=== PATIENT | male | born 1995 | race Two or more races ===

== ENCOUNTER 2024-01-31 09:57 | Inpatient (IN) | payer MEDICAID ==
[~2024-01-31] VITALS: Ht 182.9 cm; Wt 91.6 kg
[~2024-01-31 09:57] MED LIST: ZOFR4T PO
--- NOTE | 2024-01-31 10:11 | ECG ---
[facility] Test Date: 2024-01-31 Test Time: 10:05:21 Pat Name: JODY GRISSOM Department: er Room: 0250T Gender: M Controls Technician: clarissa : 1995 Requested By: KIMBERLYN MERRITT Order Number: [id number] Reading MD: Keith Platt Measurements Intervals [place] Rate: 84 P: -1 IN: 130 QRS: 37 QRSD: 93 T: 6 QT: 367 QTc: 434 Interpretive Statements Sinus rhythm Electronically Signed On 02-04-2024 10:03:48 PST by Keith Paltt Please click the below link to view image of tracing.
[2024-01-31 10:15] VITALS: PULSE 80; RESP 17; O2SAT 95
--- NOTE | 2024-01-31 10:24 | ED.PDOC ---
History of Present Illness HPI Comments This is a 28-year-old male who comes in with chief complaint of possible seizure today. The patient was currently staying with family and they noted that the patient may have had a tonic-clonic seizure today. They are not sure how long it lasted. The patient was now awake upon arrival and states that he has not had a seizure for a while. He takes valproic acid for his seizures at this time. The patient was still not completely back to his baseline. He denies any chest pain, back pain or oral trauma. Chief Complaint: Seizure Time Seen by MD: 10:04 Primary Care Provider: ROSA Reviewed Notes: Nurses Notes, Car Body Mechanic Notes, Medications, Allergies (NKDA) Allergies: Coded Allergies: NO KNOWN ALLERGIES (Unverified , 10/09/23) Home Meds Active Scripts Ondansetron Odt 4MG Tab (ZOFRAN PO) 4 Mg Tb, 4 MG PO TID PRN, #15 TAB ODT TAB-DISSOLVE IN MOUTH, THEN SWALLOW Prov:SHIVANI SUTTON MD 10/10/23 Information Source: Patient, Emergency Med Personnel Mode of Arrival: EMS Severity: Moderate Timing: Minutes Duration: Intermittent Prehospital treatment: None Associated signs and symptoms Associated seizure but no nausea, vomiting or diarrhea Past Medical History PAST MEDICAL HISTORY: DM, High Lipids, Seizures Past Medical History (Other): The patient was a paraplegic Surgical History (Other): Right arm PICC line, back surgery, cranial surgery Family History Family History: Unknown Social History Smoker: Non-Smoker Alcohol: Occasionally Drugs: Denies Drug Use Lives In: Home Constitutional: denies: chills, diaphoresis, fatigue, fever, malaise, sweats, weakness, others EENTM: denies: blurred vision, double vision, ear bleeding, ear discharge, ear drainage, ear pain, ear ringing, eye pain, eye redness, hearing loss, mouth pain, mouth swelling, nasal discharge, nose bleeding, nose congestion, nose pain, photophobia, tearing, throat pain, throat swelling, voice changes, others Respiratory: denies: cough, hemoptysis, orthopnea, SOB at rest, shortness of breath, SOB with excertion, stridor, wheezing, others Cardiovascular: denies: chest pain, dizzy spells, diaphoresis, Dyspnea on exertion, edema, irregular heart beat, left arm pain, lightheadedness, palpitations, PND, syncope, others Gastrointestinal: denies: abdomen distended, abdominal pain, blood streaked bowels, constipated, diarrhea, dysphagia, difficulty swallowing, hematemesis, melena, nausea, poor appetite, poor fluid intake, rectal bleeding, rectal pain, vomiting, others Genitourinary: denies: burning, dysuria, flank pain, frequency, hematuria, incontinence, penile discharge, penile sore, pain, testicle pain, testicle swelling, urgency, others Neurological: reports: seizure; denies: dizziness, fainting, headache, left sided numbness, left sided weakness, numbness, paresthesia, pre-existing deficit, right sided numbness, right sided weakness, speech problems, tingling, tremors, weakness, others Musculoskeletal: denies: back pain, gout, joint pain, joint swelling, muscle pain, muscle stiffness, neck pain, others Integumetry: denies: bruises, change in color, change in hair/nails, dryness, laceration, lesions, lumps, rash, wounds, others Allergic/Immunocompromised: denies: Difficulty Healing, Frequent Infections, Hives, Itching, others Hematologic/Lymphatic: denies: anemia, blood clots, easy bleeding, easy bruising, swollen glands, others Endocrine: denies: excessive hunger, excessive sweating, excessive thirst, excessive urination, flushing, intolerance to cold, intolerance to heat, unexplained weight gain, unexplained weight loss, others Psychiatric: denies: anxiety, bipolar disorder, depression, hopeless, panic disorder, schizophrenia, sleepless, suicidal, others Physical Exam General Appearance: Moderate Distress HEENT: Normal ENT Inspection, Pharynx Normal, TMs Normal Neck: Full Range of Motion, Non-Tender, Normal, Normal Inspection Respiratory: Chest Non-Tender, Lungs Clear, No Accessory Muscle Use, No Respiratory Distress, Normal Breath Sounds Cardiovascular: No Edema, No JVD, No Murmur, No Gallop, Normal Peripheral Pulses, Regular Rate/Rhythm Breast Exam: Deferred Gastrointestinal: No Organomegaly, Non Tender, No Pulsatile Mass, Normal Bowel Sounds, Soft Genitalia: Deferred Pelvic: Deferred Rectal: Deferred Extremities: No calf tenderness, Normal capillary refill, Normal inspection, Normal range of motion, Non-tender, No pedal edema Musculoskeletal : Apperance: Normal Neurologic: Motor Weakness, Normal Affect, Normal Mood, No Sensory Deficits, Other (Slightly lethargic, the patient is a paraplegic) Cerebellar Function: Unable to Test Reflexes: Normal Skin: Dry, Pallor, Warm Lymphatic: No Adenopathy Was a procedure done? Was a procedure done?: No EKG EKG : Pulse Rate (adult): 84 [place]: Normal Cardiac Rhythm: NSR Block: None ST: Nonsp Differential Dx Considerations may include: Generalized weakness, electrolyte imbalance, dehydration X-Ray, Labs, Meds, VS Vital Signs Date Time Temp Pulse Resp B/P (MAP) Pulse Ox O2 Delivery O2 Flow Rate FiO2 01/31/24 10:29 84 01/31/24 10:05 84 01/31/24 10:00 98.2 96 16 106/74 (85) 96 Lab Test 01/31/24 10:40 01/31/24 10:20 Range/Units Urine Color Colorless Yellow Urine Clarity Turbid H Clear Urine pH 5.0 5.0-9.0 Urine Specific [place] 1.033 1.001-1.035 Urine Protein Negative Negative Urine Ketones 2+ H Negative Urine Blood Trace H Negative /uL Urine Nitrite Negative Negative Urine Bilirubin Negative Negative Urine Urobilinogen Normal Negative mg/dL Urine Leukocyte Esterase 3+ Negative /uL Urine RBC 403 0 - 3 /hpf Urine WBC 152 0 - 3 /hpf Urine Squamous Epithelial Cells Few <5 /hpf Urine Bacteria Few H None Seen /hpf Urine Mucus Few None Seen Urine Yeast (Budding) Loaded None Seen /hpf Urine Glucose 4+ H Normal mg/dL White Blood Count 13.1 H 4.4-10.8 10^3/uL Red Blood Count 4.66 4.5-5.90 10^6/uL Hemoglobin 14.8 13.5-17.5 g/dL Hematocrit 44.2 41.0-53.0 % Mean Corpuscular Volume 94.8 80.0-100.0 fL Mean Corpuscular Hemoglobin 31.8 28.0-32.0 pg Mean Corpuscular Hemoglobin Concent 33.5 32.0-36.0 g/dL Red Cell Distribution Width 13.6 11.8-14.3 % Platelet Count 517 H 140-450 10^3/uL Mean Platelet Volume 7.8 6.9-10.8 fL Neutrophils (%) (Auto) 64.9 37.0-80.0 % Lymphocytes (%) (Auto) 27.5 10.0-50.0 % Monocytes (%) (Auto) 6.5 0.0-12.0 % Eosinophils (%) (Auto) 0.4 0.0-7.0 % Basophils (%) (Auto) 0.7 0.0-2.0 % Neutrophils # (Auto) 8.5 1.6-8.6 10 ^3/uL Lymphocytes # (Auto) 3.6 0.4-5.4 10 ^3/uL Monocytes # (Auto) 0.8 0-1.3 10 ^3/uL Eosinophils # (Auto) 0.1 0-0.8 10 ^3/uL Basophils # (Auto) 0.1 0-0.2 10 ^3/uL Nucleated Red Blood Cells 0.0 % Sodium Level 139 136-145 mmol/L Potassium Level 4.0 3.5-5.1 mmol/L Chloride Level 106 98-107 mmol/L Carbon Dioxide Level 23 20-31 mmol/L Anion Gap 10 5-15 Blood Urea Nitrogen 11 9-23 mg/dL Creatinine 0.62 L 0.700-1.30 mg/dL Glomerular Filtration Rate Calc 134 >90 mL/min BUN/Creatinine Ratio 17.7 10.0-20.0 Serum Glucose 230 H 74-106 mg/dL Calcium Level 10.1 8.7-10.4 mg/dL Valproic Acid Level Pending IV Hep-Lock was established The patient was placed on the conveyor monitor and seizure precautions were placed on the patient The urine test came back and is positive for a significant UTI The CBC shows an elevated white blood cell count of 13.1 There is a concern that this is acute pyelonephritis. The chemistry panel is within normal limits At this time the valproic acid level is pending The patient was being admitted The patient was given Rocephin 1 g IV piggyback We did discuss the findings with the patient and they are in agreement with the management. A neurology consult will also be obtained. We discussed the findings with the patient. Time of 1ST Reevaluation: 10:28 Reevaluation 1ST: Unchanged Patient Education/Counseling: Diagnosis, Treatment, Prognosis Family Education/Counseling: No Family Present Departure 1 Departure Time of Disposition: 11:58 Impression: Primary Impression: Observed seizure-like activity Additional Impression: Acute pyelonephritis Disposition: ADMITTED INPATIENT Admit to: Med Surg Condition: Fair Critical Care Note Critical Care Time?: Yes (35 min-critical care time only) Stability Stability form required: Yes Unstable for transfer: ED Physician Assesment (Clinical assesment) Heart Score Heart Score: Heart Score Response (Comments) Value History N/A 0 EKG N/A 0 Age N/A 0 Risk Factors N/A 0 Troponin N/A 0 Total 0 KIMBERLYN MERRITT MD Jan 31, 2024 10:24
[2024-01-31 10:44] LABS: Basophils # (auto) 0.1 10 ^3/uL (0-0.2); Eosinophils # (auto) 0.1 10 ^3/uL (0-0.8); Eosinophils % (auto) 0.4 % (0.0-7.0); Monocytes # (auto) 0.8 10 ^3/uL (0-1.3)
[2024-01-31 10:47] LABS: Basophils % (auto) 0.7 % (0.0-2.0); Hematocrit 44.2 % (41.0-53.0); Hemoglobin 14.8 g/dL (13.5-17.5); Lymphocytes # (auto) 3.6 10 ^3/uL (0.4-5.4); Lymphocytes % (auto) 27.5 % (10.0-50.0); Mean Corpuscular Hemoglobin 31.8 pg (28.0-32.0); Mean Corpuscular Hgb Conc. 33.5 g/dL (32.0-36.0); Mean Corpuscular Volume 94.8 fL (80.0-100.0); Monocytes % (auto) 6.5 % (0.0-12.0); Neutrophils # (auto) 8.5 10 ^3/uL (1.6-8.6); Neutrophils % (auto) 64.9 % (37.0-80.0); Platelet Count (auto) 517 10^3/uL (140-450); Red Blood Cells 4.66 10^6/uL (4.5-5.90); Red Cell Distribution Width 13.6 % (11.8-14.3); White Blood Cell 13.1 10^3/uL (4.4-10.8)
[2024-01-31 11:18] LABS: Urine Bacteria FEW /hpf (None Seen); Urine Blood TRACE /uL (Negative); Urine Budding Yeast LOADED /hpf (None Seen); Urine Clarity Turbid (Clear); Urine Color Colorless (Yellow); Urine Mucus FEW (None Seen); Urine Protein, UAD Negative (Negative); Urine Specific Gravity 1.033 (1.001-1.035); Urine Urobilinogen Normal (Negative); Urine WBC 152 /hpf (0 - 3)
[2024-01-31 11:31] LABS: Chloride 106 mmol/L (98-107); Sodium 139 mmol/L (136-145)
[2024-01-31 11:32] LABS: Anion Gap 10 (5-15); Calcium 10.1 mg/dL (8.7-10.4); Carbon Dioxide 23 mmol/L (20-31)
[2024-01-31 11:37] LABS: BUN/Creatinine Ratio 17.7 (10.0-20.0); Blood Urea Nitrogen 11 mg/dL (9-23)
[2024-01-31 11:46] LABS: Glucose 230 mg/dL (74-106)
[2024-01-31] MEDS: cefTRIAXone 1GM/50ML D5W 50 ML IV ONE (12:25)
[2024-01-31] MEDS ORDERED: VALP1CAP4 PO (14:41)
[2024-01-31] MEDS ORDERED: DOCUSATE SOD 100 MG CAP PO PRN ×2 (14:45→15:30)
[2024-01-31] MEDS ORDERED: DEXTROSE (50%) 50ML SYRG IV PRN ×3 (14:45→15:30)
[2024-01-31] MEDS ORDERED: HYDROcodone-ACET 5/325MG TAB PO PRN ×2 (14:45→15:30)
[2024-01-31] MEDS ORDERED: ACETAMINOPHEN 325 MG TAB PO PRN ×2 (14:45→15:30)
[2024-01-31] MEDS ORDERED: MORPHINE SULFATE INJ 2 MG/ml SYRG IV PRN ×2 (14:45→15:30)
[2024-01-31] MEDS ORDERED: ONDANSETRON HCL 4 MG/2 ML VIAL IV PRN ×2 (14:45→15:30)
[2024-01-31] MEDS ORDERED: ATOR40TA52 PO (14:46)
[2024-01-31] MEDS ORDERED: APIX2.5T PO (14:46)
[2024-01-31] MEDS ORDERED: LEVE100020 PO (14:46)
[2024-01-31] MEDS ORDERED: CHOL20003 PO (14:46)
[2024-01-31] MEDS ORDERED: ERTAPENEM SOD 1 GM INJ VIAL IM SCH (15:00)
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
[2024-01-31] MEDS: ACCU-CHEK COMFORT CURVE STRIP VI SCH ×2 (16:27→17:00)
[2024-01-31] MEDS: ERTAPENEM SOD INJ 1 GM in SODIUM CHL 0.9% 50 ML IV SCH (16:31)
[2024-01-31] MEDS: InsuLIN REG 1unit/0.01ml Soln (100units/ml) SC SCH (16:33)
[2024-01-31] MEDS ORDERED: InsuLIN REG 1unit/0.01ml Soln (100units/ml) SC SCH ×2 (17:00→17:15)
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
[2024-02-01] VITALS (10 sets, daily range): BP systolic 91–113; BP diastolic 53–62; PULSE 68–78; RESP 14–18; TEMP 97.9–98.7; O2SAT 95–100
[2024-02-01] MEDS ORDERED: SITA50TA25 PO (00:47)
[2024-02-01 08:22] LABS: Eosinophils # (auto) 0.1 10 ^3/uL (0-0.8); Eosinophils % (auto) 0.8 % (0.0-7.0); Hemoglobin 13.7 g/dL (13.5-17.5); Monocytes # (auto) 0.7 10 ^3/uL (0-1.3); Neutrophils % (auto) 49.6 % (37.0-80.0); Red Blood Cells 4.34 10^6/uL (4.5-5.90)
[2024-02-01 08:24] LABS: Basophils # (auto) 0 10 ^3/uL (0-0.2); Basophils % (auto) 0.4 % (0.0-2.0); Lymphocytes # (auto) 4.9 10 ^3/uL (0.4-5.4); Lymphocytes % (auto) 43.1 % (10.0-50.0); Mean Corpuscular Hemoglobin 31.6 pg (28.0-32.0); Mean Corpuscular Hgb Conc. 33.5 g/dL (32.0-36.0); Mean Corpuscular Volume 94.4 fL (80.0-100.0); Monocytes % (auto) 6.1 % (0.0-12.0); Neutrophils # (auto) 5.6 10 ^3/uL (1.6-8.6); Nucleated Red Blood Cells % 0.1 %; Platelet Count (auto) 469 10^3/uL (140-450); Red Cell Distribution Width 13.9 % (11.8-14.3); White Blood Cell 11.3 10^3/uL (4.4-10.8)
--- NOTE | 2024-02-01 08:25 | DVHPN2 ---
Progress Note - Dictate Date Seen: Feb 01, 2024 Medical Necessity Reason Pt with a Central, PICC or Fol: Yes The following are medically ne: Romero Catheter Subjective Mr. Stanley is a right-handed gentleman with a history of traumatic brain injury, the patient was brought to the [facility] on 01/31/2024 with a chief company of seizure activity. I have seen and examined the patient, I have discussed with his nurse, the patient was doing fine, no seizure activity, no new complaints Valproic acid, 01/31/2024: 6.8, <3, 01/22/2020 4:24.5 Urinalysis, 01/31/2024: WBC: 152, urine leukocyte esterase: 3+ WBC/HB/PLT/MCV, 01/31/2024: 13.1/40.8/517/94.8 BMP, 01/31/2024: Unremarkable CMP, 02/01/2024: Unremarkable Vitamin B12, 02/01/2024: 921 Folic acid, 02/01/2024: 5.65 TSH, 02/01/2024: Up HGB A1c, 01/31/2024: 7.8 vital signs Vital Sign Date Time Temp Pulse Resp B/P (MAP) Pulse Ox O2 Delivery O2 Flow Rate FiO2 02/01/24 05:12 98.5 73 16 103/61 (75) 95 98.5 02/01/24 00:47 Room Air* 0 21 Total Intake and Output 01/31/24 01/31/24 02/01/24 15:00 23:00 07:00 Intake Total 50 ml 50 ml 0 ml Output Total 2000 ml 375 ml Balance 50 ml -1950 ml -375 ml medications Current Medications Medications Dose Ordered Sig/[place] Route Start Time Stop Time Status Last Admin Dose Admin Ertapenem 1 gm DAILY IM 01/31/24 15:00 02/04/24 15:00 Cancel Acetaminophen 650 mg Q6HP PRN PO 01/31/24 14:45 Ertapenem 1 gm/ Sodium Chloride 50 ml @ 100 mls/hr DAILY IV 01/31/24 16:00 02/04/24 17:00 01/31/24 16:31 100 MLS/HR Diagnostic Test (Pha) 1 strip IQ4HR 01/31/24 16:00 02/01/24 04:00 1 STRIP Insulin Human Regular IQ4HR SC 01/31/24 16:00 02/01/24 05:21 3 UNITS Dextrose 50 ml UD PRN IV 01/31/24 15:30 Acetaminophen/ Hydrocodone Bitart 1 tab Q4HP PRN PO 01/31/24 15:30 Ondansetron HCl 4 mg Q4HP PRN IV 01/31/24 15:30 Docusate Sodium 100 mg BIDPRN PRN PO 01/31/24 15:30 Morphine Sulfate 2 mg Q4HPRN PRN IV 01/31/24 15:30 Divalproex Sodium 750 mg QAM PO 02/01/24 07:00 02/01/24 06:15 750 MG Divalproex Sodium 1,000 mg HS PO 01/31/24 22:00 01/31/24 22:00 1,000 MG Lorazepam 1 mg Q5MINP PRN IV 01/31/24 21:30 objective MENTAL STATUS: Awake and alert. Oriented to person, place and time. SPEECH, LANGUAGE, HIGHER CORTICAL FUNCTION: Speech, language normal. CRANIAL NERVES: Pupils are equal, round and reactive. EOMs full and conjugate. No nystagmus. Facial sensation intact in all three divisions bilaterally. Mandibular strength intact. Facial muscles symmetrical and strength intact. SENSATION: pinprick is diminished: Below bilateral T12-L1 dermatomes MUSCLE TONE, BULK: Normal tone in the upper and lower extremity. Normal muscle bulk. No fasciculations. No abnormal movements or posturing. Muscle strength of the major groups in the upper extremities is 5/5, Lower extremities: 0/5. REFLEXES: Deep tendon reflexes normal and symmetrical. No pathological reflexes. CEREBELLAR/COORDINATION: Finger to nose is normal bilaterally. GAIT/STATION: Cannot stand or walk Big scars in the chest, abdomen., T-spine laboratory and microbiology Test 02/01/24 05:55 Range/Units Serum Glucose Pending Problem List Seizure breakthrough Seizure disorder secondary to traumatic brain injury Chronic brain trauma status post surgery Paraplegia Urinary tract infection Assessment/Plan Monitoring Supportive treatment Telemetry UDS Follow-up Depakote level this evening EEG Extra acid 1000 mg po now Depakote 750 mg a.m., 1000 mg HS Ativan for seizure breakthrough IV antibiotics Follow with his doctors on discharge This medical document was created using an electronic medical record system with [employer] dictation system. Although this document has been carefully reviewed, there may still be some phonetic and typographical errors. These areas are purely typographical due to imperfections of the software programs, and do not reflect any compromise in the patient's medical care Prognosis poor Plan discussed with: Patient, Other Total Time (mins): 35 FAWAD MERINO MD Feb 01, 2024 08:25
[2024-02-01 08:33] LABS: Alanine Aminotransferase 29 U/L (7-40); Albumin 3.7 g/dL (3.2-4.8); Alkaline Phosphatase 70 U/L (46-116); Anion Gap 11 (5-15); Aspartate Aminotransferase 16 U/L (13-40); BUN/Creatinine Ratio 20.4 (10.0-20.0); Blood Urea Nitrogen 10 mg/dL (9-23); Calcium 9.5 mg/dL (8.7-10.4); Carbon Dioxide 22 mmol/L (20-31); Chloride 107 mmol/L (98-107); Magnesium 1.7 mg/dL (1.6-2.6); Phosphorus 3.9 mg/dL (2.4-5.1); Potassium 3.7 mmol/L (3.5-5.1); Sodium 140 mmol/L (136-145)
[2024-02-01 08:34] LABS: Bilirubin, Total 0.4 mg/dL (0.2-1.0); Total Protein 6.7 g/dL (5.7-8.2)
[2024-02-01 08:35] LABS: Blood Alcohol < 3.0 mg/dL (<10); Glucose 157 mg/dL (74-106); INR 1.08 (0.9-1.15); Prothrombin Time 11.4 sec (9.3-11.8)
[2024-02-01 08:54] LABS: Folate (Folic Acid) 5.65 ng/mL (>5.38)
--- NOTE | 2024-02-01 09:39 | DVH ---
EXAM: XY CHEST XRAY 1 VIEW Indication: Chest pain Technique: Single frontal view of the chest was obtained Comparison: None FINDINGS: Lines and Tubes: None Lungs: No focal consolidation. Pleura: No effusion. No pneumothorax. Cardiomediastinal contours: Unremarkable Bones: No acute osseous abnormality. IMPRESSION: No acute cardiopulmonary disease.
--- NOTE | 2024-02-01 10:36 | DVH ---
EXAM: CT HEAD WITHOUT CONTRAST INDICATION: SEIZURE TECHNIQUE: CT of the head without intravenous contrast. Radiation Dose Information: CT Dose: CTDI volume is 66.09 mGy. Dose-length product is 1300.53 mGy*cm The dose indicators for CT are the volume Computed Tomography (CT) Dose Index (CTDIvol) and the Dose Length Product (DLP), and are measured in units of mGy and mGy-cm, respectively. These indicators are not patient dose, but values generated from the CT scanner acquisition factors. The report includes radiation exposure data for exposures received during this examination. COMPARISON: None FINDINGS: Right frontotemporoparietal craniotomy. Right frontotemporal region of chronic encephalomalacia. Mild ex vacuo dilatation of the right lateral ventricle. There is no evidence of acute intracranial hemorrhage, extra-axial collection, mass effect, midline s hift, herniation or hydrocephalus. The ventricles, sulci and cisterns are age appropriate. The gomez-white differentiation is intact. Patchy periventricular and subcortical white matter hypoattenuation is nonspecific but may be related to small vessel ischemic disease. The visualized paranasal sinuses and mastoid air cells are clear. The surrounding soft tissues and osseous structures are unremarkable. IMPRESSION: 1. No CT evidence of acute intracranial abnormality. Right frontotemporoparietal craniotomy with unde rlying frontotemporal region of chronic encephalomalacia. HS:Y
[2024-02-01] MEDS: MAGNESIUM SULFATE 1GM/100ML 100 ML IV ONE (11:24)
[2024-02-01 12:07] LABS: Cannabinoid Screen, Urine Pos (NEGATIVE)
[2024-02-01 12:11] LABS: Amphetamine Screen, Urine Neg (NEGATIVE); Barbiturate Scree,Urine Neg (NEGATIVE); Benzodiazephine Screen, Urine Neg (NEGATIVE); Cocaine Screen, Urine Neg (NEGATIVE); Opiate Scree,Urine Neg (NEGATIVE); Phencyclidine Screen, Urine Neg (NEGATIVE)
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
[2024-02-01] MEDS: ATORVASTATIN 20 MG TAB PO SCH (21:24)
[2024-02-01] MEDS: APIXABAN 2.5 MG TAB PO SCH (21:24)
[2024-02-01] MEDS: FAMOTIDINE 20 MG TAB PO SCH (21:24)
[2024-02-02] VITALS (9 sets, daily range): BP systolic 94–122; BP diastolic 48–85; PULSE 59–116; RESP 17–97; TEMP 97.5–99.3; O2SAT 96–100
[2024-02-02 08:00] LABS: Basophils # (auto) 0.1 10 ^3/uL (0-0.2); Basophils % (auto) 0.7 % (0.0-2.0); Eosinophils # (auto) 0.1 10 ^3/uL (0-0.8); Hematocrit 45.3 % (41.0-53.0); Lymphocytes # (auto) 5.3 10 ^3/uL (0.4-5.4); Lymphocytes % (auto) 50.1 % (10.0-50.0); Mean Corpuscular Hemoglobin 32.2 pg (28.0-32.0); Mean Corpuscular Hgb Conc. 33.1 g/dL (32.0-36.0); Mean Corpuscular Volume 97.5 fL (80.0-100.0); Monocytes # (auto) 0.5 10 ^3/uL (0-1.3); Monocytes % (auto) 5.1 % (0.0-12.0); Neutrophils # (auto) 4.6 10 ^3/uL (1.6-8.6); Neutrophils % (auto) 43.1 % (37.0-80.0); Nucleated Red Blood Cells % 0.1 %; Platelet Count (auto) 494 10^3/uL (140-450); Red Blood Cells 4.64 10^6/uL (4.5-5.90); White Blood Cell 10.6 10^3/uL (4.4-10.8)
[2024-02-02 08:05] LABS: Alanine Aminotransferase 28 U/L (7-40); Albumin 3.9 g/dL (3.2-4.8); Alkaline Phosphatase 75 U/L (46-116); Anion Gap 10 (5-15); Aspartate Aminotransferase 21 U/L (13-40); Bilirubin, Total 0.5 mg/dL (0.2-1.0); Calcium 9.7 mg/dL (8.7-10.4); Carbon Dioxide 22 mmol/L (20-31); Chloride 106 mmol/L (98-107); Magnesium 1.9 mg/dL (1.6-2.6); Potassium 4.3 mmol/L (3.5-5.1); Sodium 138 mmol/L (136-145)
[2024-02-02 08:06] LABS: Total Protein 7.4 g/dL (5.7-8.2)
[2024-02-02 08:08] LABS: Blood Urea Nitrogen 8 mg/dL (9-23); Glucose 170 mg/dL (74-106)
--- NOTE | 2024-02-02 09:00 | DVHPN2 ---
Progress Note - Dictate Date Seen: Feb 02, 2024 Medical Necessity Reason Pt with a Central, PICC or Fol: Yes The following are medically ne: PICC Line, Romero Catheter vital signs Vital Sign Date Time Temp Pulse Resp B/P (MAP) Pulse Ox O2 Delivery O2 Flow Rate FiO2 02/02/24 05:00 99.3 116 97 99/54 (69) 97 99.3 02/01/24 20:00 Room Air* 0 21 Total Intake and Output 02/01/24 02/01/24 02/02/24 15:00 23:00 07:00 Intake Total 400 ml 800 ml 450 ml Output Total 1600 ml 1800 ml Balance 400 ml -800 ml -1350 ml medications Current Medications Medications Dose Ordered Sig/Roosevelt Route Start Time Stop Time Status Last Admin Dose Admin Ertapenem 1 gm DAILY IM 01/31/24 15:00 02/04/24 15:00 Cancel Acetaminophen 650 mg Q6HP PRN PO 01/31/24 14:45 Ertapenem 1 gm/ Sodium Chloride 50 ml @ 100 mls/hr DAILY IV 01/31/24 16:00 02/04/24 17:00 02/01/24 10:12 100 MLS/HR Diagnostic Test (Pha) 1 strip IQ4HR 01/31/24 16:00 02/02/24 03:44 1 STRIP Insulin Human Regular IQ4HR SC 01/31/24 16:00 02/02/24 00:02 4 UNITS Dextrose 50 ml UD PRN IV 01/31/24 15:30 Acetaminophen/ Hydrocodone Bitart 1 tab Q4HP PRN PO 01/31/24 15:30 Ondansetron HCl 4 mg Q4HP PRN IV 01/31/24 15:30 Docusate Sodium 100 mg BIDPRN PRN PO 01/31/24 15:30 Morphine Sulfate 2 mg Q4HPRN PRN IV 01/31/24 15:30 Divalproex Sodium 750 mg QAM PO 02/01/24 07:00 02/02/24 06:21 750 MG Divalproex Sodium 1,000 mg HS PO 01/31/24 22:00 02/01/24 21:23 1,000 MG Lorazepam 1 mg Q5MINP PRN IV 01/31/24 21:30 Apixaban 2.5 mg BID PO 02/01/24 22:00 02/01/24 21:24 2.5 MG Atorvastatin Calcium 40 mg HS PO 02/01/24 22:00 02/01/24 21:24 40 MG Cholecalciferol 2,000 unit DAILY PO 02/02/24 10:00 Famotidine 20 mg Q12HR PO 02/01/24 22:00 02/01/24 21:24 20 MG Sodium Chloride 1,000 ml @ 125 mls/hr Q8H IV 02/02/24 06:45 objective MENTAL STATUS: Awake and alert. Oriented to person, place and time. SPEECH, LANGUAGE, HIGHER CORTICAL FUNCTION: Speech, language normal. CRANIAL NERVES: Pupils are equal, round and reactive. EOMs full and conjugate. No nystagmus. Facial sensation intact in all three divisions bilaterally. Mandibular strength intact. Facial muscles symmetrical and strength intact. SENSATION: pinprick is diminished: Below bilateral T12-L1 dermatomes MUSCLE TONE, BULK: Normal tone in the upper and lower extremity. Normal muscle bulk. No fasciculations. No abnormal movements or posturing. Muscle strength of the major groups in the upper extremities is 5/5, Lower extremities: 0/5. REFLEXES: Deep tendon reflexes normal and symmetrical. No pathological reflexes. CEREBELLAR/COORDINATION: Finger to nose is normal bilaterally. GAIT/STATION: Cannot stand or walk Big scars in the chest, abdomen., T-spine laboratory and microbiology Laboratory Tests 02/02/24 07:09 Test 02/02/24 07:09 Range/Units Serum Glucose 170 H 74-106 mg/dL Problem List Seizure breakthrough Seizure disorder secondary to traumatic brain injury Chronic brain trauma status post surgery Paraplegia Urinary tract infection Assessment/Plan Monitoring Supportive treatment Telemetry UDS Follow-up Depakote level this evening EEG Extra acid 1000 mg po now Depakote 750 mg a.m., 1000 mg HS Ativan for seizure breakthrough IV antibiotics Follow with his doctors on discharge This medical document was created using an electronic medical record system with [employer] dictation system. Although this document has been carefully reviewed, there may still be some phonetic and typographical errors. These areas are purely typographical due to imperfections of the software programs, and do not reflect any compromise in the patient's medical care Plan discussed with: Other FAWAD MERINO MD Feb 02, 2024 09:00
[2024-02-02] MEDS: CHOLECALCIFEROL (VITD3) 1,000UNIT=25mCg TAB PO SCH (09:16)
--- NOTE | 2024-02-02 09:56 | DVHPN2 ---
Progress Note - Dictate Date Seen: Feb 02, 2024 Medical Necessity Reason Pt with a Central, PICC or Fol: Yes The following are medically ne: PICC Line, Romero Catheter Subjective Mr. Stanley is a right-handed gentleman with a history of traumatic brain injury, the patient was brought to the [facility] on 01/31/2024 with a chief company of seizure activity. I have seen and examined the patient, I have discussed with his nurse, the patient was doing fine, no seizure activity, no new complaints Valproic acid, 01/31/2024: 6.8, <3, 01/22/2024:24.5, 02/02/2024:36.2 Urinalysis, 01/31/2024: WBC: 152, urine leukocyte esterase: 3+ UDS, 02/01/2024: Cannabinoids WBC/HB/PLT/MCV, 01/31/2024: 13.1/40.8/517/94.8 BMP, 01/31/2024: Unremarkable CMP, 02/01/2024: Unremarkable Vitamin B12, 02/01/2024: 921 Folic acid, 02/01/2024: 5.65 TSH, 02/01/2024: Up HGB A1c, 01/31/2024: 7.8 CT head, 02/01/2024: No CT evidence of acute intracranial abnormality. Right frontotemporoparietal craniotomy with underlying frontotemporal region of chronic encephalomalacia. vital signs Vital Sign Date Time Temp Pulse Resp B/P (MAP) Pulse Ox O2 Delivery O2 Flow Rate FiO2 02/02/24 05:00 99.3 116 97 99/54 (69) 97 99.3 02/01/24 20:00 Room Air* 0 21 Total Intake and Output 02/01/24 02/01/24 02/02/24 15:00 23:00 07:00 Intake Total 400 ml 800 ml 450 ml Output Total 1600 ml 1800 ml Balance 400 ml -800 ml -1350 ml medications Current Medications Medications Dose Ordered Sig/Roosevelt Route Start Time Stop Time Status Last Admin Dose Admin Ertapenem 1 gm DAILY IM 01/31/24 15:00 02/04/24 15:00 Cancel Acetaminophen 650 mg Q6HP PRN PO 01/31/24 14:45 Ertapenem 1 gm/ Sodium Chloride 50 ml @ 100 mls/hr DAILY IV 01/31/24 16:00 02/04/24 17:00 02/01/24 10:12 100 MLS/HR Diagnostic Test (Pha) 1 strip IQ4HR 01/31/24 16:00 02/02/24 08:55 1 STRIP Insulin Human Regular IQ4HR SC 01/31/24 16:00 02/02/24 09:21 4 UNITS Dextrose 50 ml UD PRN IV 01/31/24 15:30 Acetaminophen/ Hydrocodone Bitart 1 tab Q4HP PRN PO 01/31/24 15:30 Ondansetron HCl 4 mg Q4HP PRN IV 01/31/24 15:30 Docusate Sodium 100 mg BIDPRN PRN PO 01/31/24 15:30 Morphine Sulfate 2 mg Q4HPRN PRN IV 01/31/24 15:30 Divalproex Sodium 750 mg QAM PO 02/01/24 07:00 02/02/24 06:21 750 MG Divalproex Sodium 1,000 mg HS PO 01/31/24 22:00 02/01/24 21:23 1,000 MG Lorazepam 1 mg Q5MINP PRN IV 01/31/24 21:30 Apixaban 2.5 mg BID PO 02/01/24 22:00 02/02/24 09:17 2.5 MG Atorvastatin Calcium 40 mg HS PO 02/01/24 22:00 02/01/24 21:24 40 MG Cholecalciferol 2,000 unit DAILY PO 02/02/24 10:00 02/02/24 09:16 2,000 UNIT Famotidine 20 mg Q12HR PO 02/01/24 22:00 02/02/24 09:17 20 MG Sodium Chloride 1,000 ml @ 125 mls/hr Q8H IV 02/02/24 06:45 objective MENTAL STATUS: Awake and alert. Oriented to person, place and time. SPEECH, LANGUAGE, HIGHER CORTICAL FUNCTION: Speech, language normal. CRANIAL NERVES: Pupils are equal, round and reactive. EOMs full and conjugate. No nystagmus. Facial sensation intact in all three divisions bilaterally. Mandibular strength intact. Facial muscles symmetrical and strength intact. SENSATION: pinprick is diminished: Below bilateral T12-L1 dermatomes MUSCLE TONE, BULK: Normal tone in the upper and lower extremity. Normal muscle bulk. No fasciculations. No abnormal movements or posturing. Muscle strength of the major groups in the upper extremities is 5/5, Lower extremities: 0/5. REFLEXES: Deep tendon reflexes normal and symmetrical. No pathological reflexes. CEREBELLAR/COORDINATION: Finger to nose is normal bilaterally. GAIT/STATION: Cannot stand or walk Big scars in the chest, abdomen., T-spine laboratory and microbiology Laboratory Tests 02/02/24 07:09 Test 02/02/24 07:09 Range/Units Serum Glucose 170 H 74-106 mg/dL Problem List Seizure breakthrough Seizure disorder secondary to traumatic brain injury Chronic brain trauma status post surgery Paraplegia Urinary tract infection Assessment/Plan Monitoring Supportive treatment Telemetry Follow-up Depakote level this evening EEG Extra Depakote 1000 mg po now Depakote 750 mg a.m., 1000 mg HS Ativan for seizure breakthrough IV antibiotics Follow with his doctors on discharge This medical document was created using an electronic medical record system with [employer] computerized dictation system. Although this document has been carefully reviewed, there may still be some phonetic and typographical errors. These areas are purely typographical due to imperfections of the software programs, and do not reflect any compromise in the patient's medical care Prognosis poor Plan discussed with: Patient, Other FAWAD MERINO MD Feb 02, 2024 09:56
[2024-02-02] MEDS: SODIUM CHLORIDE 0.9% 500 ML IV ONE (10:03)
[2024-02-02] MEDS: SODIUM CHLORIDE 0.9% 1,000 ML IV SCH (10:03)
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
[2024-02-03] VITALS (8 sets, daily range): BP systolic 82–113; BP diastolic 56–68; PULSE 64–86; RESP 14–20; TEMP 97.9–98.5; O2SAT 96–100
[2024-02-03] MEDS: LORazepam 2MG/ML-1ML VIAL IV PRN (03:43)
[2024-02-03 06:49] LABS: Basophils # (auto) 0 10 ^3/uL (0-0.2); Basophils % (auto) 0.4 % (0.0-2.0); Eosinophils # (auto) 0.1 10 ^3/uL (0-0.8); Eosinophils % (auto) 0.5 % (0.0-7.0); Hemoglobin 15.3 g/dL (13.5-17.5); Lymphocytes # (auto) 3.8 10 ^3/uL (0.4-5.4); Lymphocytes % (auto) 36.5 % (10.0-50.0); Mean Corpuscular Hemoglobin 32.4 pg (28.0-32.0); Mean Corpuscular Hgb Conc. 33.3 g/dL (32.0-36.0); Mean Corpuscular Volume 97.6 fL (80.0-100.0); Monocytes # (auto) 0.6 10 ^3/uL (0-1.3); Monocytes % (auto) 5.5 % (0.0-12.0); Neutrophils # (auto) 5.9 10 ^3/uL (1.6-8.6); Neutrophils % (auto) 57.1 % (37.0-80.0); Nucleated Red Blood Cells % 0.1 %; Platelet Count (auto) 513 10^3/uL (140-450); Red Blood Cells 4.72 10^6/uL (4.5-5.90); Red Cell Distribution Width 13.6 % (11.8-14.3); White Blood Cell 10.3 10^3/uL (4.4-10.8)
[2024-02-03 07:03] LABS: Potassium 3.9 mmol/L (3.5-5.1); Sodium 142 mmol/L (136-145)
[2024-02-03 07:04] LABS: Anion Gap 9 (5-15); Carbon Dioxide 24 mmol/L (20-31)
[2024-02-03 07:08] LABS: Chloride 109 mmol/L (98-107)
[2024-02-03 07:09] LABS: BUN/Creatinine Ratio 13.5 (10.0-20.0)
[2024-02-03 07:11] LABS: Blood Urea Nitrogen 7 mg/dL (9-23); Glucose 111 mg/dL (74-106)
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
[2024-02-03] MEDS: VALPROATE INJ 1,000 MG in SODIUM CHL 0.9% 100 ML IV ONE (12:20)
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
[2024-02-04] VITALS (8 sets, daily range): BP systolic 93–110; BP diastolic 51–66; PULSE 59–84; RESP 17–20; TEMP 36.4; O2SAT 98–100
[2024-02-04 06:48] LABS: Basophils # (auto) 0.1 10 ^3/uL (0-0.2); Basophils % (auto) 0.7 % (0.0-2.0); Eosinophils # (auto) 0.1 10 ^3/uL (0-0.8); Hematocrit 38.4 % (41.0-53.0); Lymphocytes % (auto) 38.3 % (10.0-50.0); Mean Corpuscular Hemoglobin 32.6 pg (28.0-32.0); Mean Corpuscular Volume 95.9 fL (80.0-100.0); Monocytes # (auto) 0.6 10 ^3/uL (0-1.3); Monocytes % (auto) 5.5 % (0.0-12.0); Neutrophils # (auto) 5.6 10 ^3/uL (1.6-8.6); Neutrophils % (auto) 54.5 % (37.0-80.0); Nucleated Red Blood Cells % 0.1 %; Platelet Count (auto) 393 10^3/uL (140-450); Red Cell Distribution Width 13.8 % (11.8-14.3); White Blood Cell 10.3 10^3/uL (4.4-10.8)
[2024-02-04 06:51] LABS: Anion Gap 6 (5-15); Carbon Dioxide 26 mmol/L (20-31); Potassium 3.8 mmol/L (3.5-5.1); Sodium 142 mmol/L (136-145)
[2024-02-04 06:54] LABS: Chloride 110 mmol/L (98-107)
[2024-02-04 06:57] LABS: BUN/Creatinine Ratio 21.4 (10.0-20.0)
[2024-02-04 06:58] LABS: Magnesium 1.7 mg/dL (1.6-2.6)
[2024-02-04 07:08] LABS: Blood Urea Nitrogen 9 mg/dL (9-23); Glucose 157 mg/dL (74-106)
[2024-02-04] MEDS ORDERED: DIVA1TAB39 PO (11:49)
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
--- NOTE | 2024-02-05 11:55 | DVHEEG2 ---
Neurology EEG Procedural Note Procedural Note EXAM DATE: 02/04/2024 REFERRING DOCTOR: Dr. Merino TECHNIQUE: Eighteen channels of EEG, 2 channels of EOG, and 1 channel of EKG were recorded using the International 10/20 system. CLINICAL DATA: The patient was referred for an EEG evaluation for the evidence of seizure disorder. MEDICATIONS: See chart BACKGROUND ACTIVITY: There was electrode artifacts in the recording. While the patient was awake, the background activity consisted of well regulated 8-9 Hz rhythmic waveforms, symmetrically distributed over both posterior quadrants and was reactive to eye opening. ACTIVATION: Hyperventilation: Not done Photic Stimulation: Not done Sleep: Not seen IMPRESSION: This is a normal EEG. No focal, lateralized, or epileptiform features are noted. If clinically indicated to rule out a seizure disorder, recommend repeat EEG with sleep deprivation. The EKG channel showed a regular heart rate of 60 per [place] [address] FAWAD MERINO MD Feb 05, 2024 11:55
== END 2024-02-04 20:36 | disposition home health service (06) | DRG 720 ==
LOC: ER 09:57 → EDBD 09:57 → TELE 14:54 → ER 14:56 → TELE 14:56 → TELE-WESTW 23:42 → TELE-EAST 02-01 15:10
PROVIDERS: ADMIT Internal Medicine Geriatric Medicine; ATTEND Internal Medicine Geriatric Medicine
DX: A41.9 Sepsis, unspecified organism (principal); G82.20 Paraplegia, unspecified; N39.0 Urinary tract infection, site not specified; E11.9 Type 2 diabetes mellitus without complications; E78.5 Hyperlipidemia, unspecified; G40.909 Epilepsy, unspecified, not intractable, without status epilepticus; R81 Glycosuria; Z74.01 Bed confinement status; Z79.899 Other long term (current) drug therapy; Z82.49 Family history of ischemic heart disease and other diseases of the circulatory system; Z83.3 Family history of diabetes mellitus; Z87.820 Personal history of traumatic brain injury; Z79.4 Long term (current) use of insulin
CPT/HCPCS: 36415; 70450; 71045; 80048; 80053; 80164; 80307; 80320; 81001; 82550; 82607; 82746; 82962; 83036; 83605; 83735; 84100; 84443; 85025; 85379; 85610; 87081; 87086; 87088; 93005; 95819; 96365; 99291; G0378; J1335; J1815